=== PATIENT | male | born 1935 | race Caucasian/White ===

== ENCOUNTER 2016-03-29 18:55 | Observation (INO) | payer OTHER ==
[~2016-03-29] VITALS: Ht 175.3 cm; Wt 94.7 kg
[2016-03-29 19:40] LABS: HEMATOCRIT 46.8 % (38.0-50.0); MCH 30.3 PG (29.0-34.0); MCHC 33.3 G/DL (30.0-36.0); MCV 90.9 FL (86-99); MEAN PLAT.VOLUME 10.9 uM^3 (9.0-12.4); PLATELET COUNT 190 K/uL (156-360); RBC DIS.WIDTH-SD 45.9 % (39-53); RED BLOOD COUNT 5.15 M/uL (4.00-5.50); WHITE BLOOD COUNT 12.5 K/uL (4.1-10.2)
[2016-03-29 19:48] LABS: CHLORIDE 105 mEq/L (99-109); POTASSIUM 4.3 mEq/L (3.7-5.4); SODIUM 136 mEq/L (136-147)
[2016-03-29 19:50] LABS: GLUCOSE 198 mg/dL (70-99)
[2016-03-29 19:51] LABS: ANION GAP 8 MEQ/L (2-14)
[2016-03-29 19:54] LABS: GFR ESTIMATE (CALCULATED) 39 mL/min/; UREA NITROGEN (BUN) 27 mg/dL (9-23)
[2016-03-29 20:34] LABS: TROP-I INTERPRETATION NEGATIVE; TROPONIN-I 0.04 ng/mL (0.0-0.30)
[2016-03-29] MEDS ORDERED: ZOCOR40 MG PO (20:45)
[2016-03-29] MEDS ORDERED: CILOSTAZOL50 MG PO (20:46)
[2016-03-29] MEDS ORDERED: JANUVIA25 M1 PO (20:46)
[2016-03-29] MEDS ORDERED: TOUJEO SOL300 UNIT/1 SC (20:46)
[2016-03-29] MEDS ORDERED: ZESTORETIC 20-1 EAC1 PO (20:46)
[2016-03-29] MEDS ORDERED: GLUCOTROL XL5 MG PO (20:46)
[2016-03-29] MEDS ORDERED: ASPIR 8181 M1 PO (20:46)
[2016-03-29] MEDS ORDERED: TIMOPTIC-0100 DROP/1 BOTH EYES (20:47)
[2016-03-29] MEDS ORDERED: CINNAMON500 MG PO (20:47)
[2016-03-29 23:52] LABS: HDL CHOLESTEROL 37 MG/DL (Desirable>=40); LDL CHOLESTEROL 70 mg/dL (Desirable<100); NON-HDL CHOLESTEROL 92 mg/dL (Desirable<160); TOTAL CHOLESTEROL 129 mg/dL (Desirable<200); TRIGLYCERIDES 110 MG/DL (Normal: <150)
[2016-03-30 03:02] LABS: TROP-I INTERPRETATION NEGATIVE; TROPONIN-I 0.04 ng/mL (0.0-0.30)
[2016-03-30 03:55] LABS: HDL CHOLESTEROL 35 MG/DL (Desirable>=40); LDL CHOLESTEROL 66 mg/dL (Desirable<100); NON-HDL CHOLESTEROL 75 mg/dL (Desirable<160); TOTAL CHOLESTEROL 110 mg/dL (Desirable<200); TRIGLYCERIDES 45 MG/DL (Normal: <150)
[2016-03-30 06:59] LABS: POINT-OF-CARE METER ID UU13113831
[2016-03-30 07:26] VITALS: BP 122/82
[2016-03-30 07:29] LABS: POINT-OF-CARE METER ID UU13113831
[2016-03-30 07:41] LABS: Estimated Average Glucose 137 mg/dL (70-123); HEMOGLOBIN A1c (GLYCOHEMOGLOB) 6.4 % HGB (Below 5.7)
[2016-03-30 07:46] LABS: Estimated Average Glucose 140 mg/dL (70-123); HEMOGLOBIN A1c (GLYCOHEMOGLOB) 6.5 % HGB (Below 5.7)
[2016-03-30 09:59] LABS: TROP-I INTERPRETATION NEGATIVE; TROPONIN-I 0.03 ng/mL (0.0-0.30)
[2016-03-30 12:41] VITALS: BP 139/98
[2016-03-30 12:46] LABS: ADD MIUA? NO; BILIRUBIN NEGATIVE; BLOOD NEGATIVE; COLOR YELLOW ((YELLOW)); GLUCOSE (STRIP) 150; KETONES NEGATIVE; LEUKOCYTES NEGATIVE; NITRITE NEGATIVE; PROTEIN (STRIP) NEGATIVE; SPECIFIC GRAVITY 1.013 (1.000-1.030); UCUL ADDED? NO; UROBILINOGEN 0.2 MG/DL (0.2-1.0)
== END 2016-03-30 12:50 | disposition home or self-care (01) ==
LOC: EME 18:55 → EDOF 22:15 → 5WEST 22:15 → EDOF 22:15 → 5WEST 03-30 00:20
PROVIDERS: Emergency Medicine; Hospitalist; Physician Assistant
DX: R47.81 Slurred speech (principal); R42 Dizziness and giddiness; R26.89 Other abnormalities of gait and mobility; R94.31 Abnormal electrocardiogram [ECG] [EKG]; E11.22 Type 2 diabetes mellitus with diabetic chronic kidney disease; I12.9 Hypertensive chronic kidney disease with stage 1 through stage 4 chronic kidney disease, or unspecified chronic kidney disease; N17.9 Acute kidney failure, unspecified; N18.3 Chronic kidney disease, stage 3 (moderate); E78.5 Hyperlipidemia, unspecified; Z82.3 Family history of stroke; Z82.49 Family history of ischemic heart disease and other diseases of the circulatory system; Z88.5 Allergy status to narcotic agent
CPT/HCPCS: 70450; 70551; 71010; 80048; 80061; 81003; 82948; 83036; 84484; 85027; 93005; 93306; 93880; G0378; J1644; J1815

== ENCOUNTER 2016-04-16 08:02 | Day surgery (SDC) | payer OTHER ==
[~2016-04-16] VITALS: Ht 175.3 cm; Wt 90.7 kg
[~2016-04-16 08:02] MED LIST: ASPIR 8181 M1 PO; CILOSTAZOL50 MG PO; CINNAMON500 MG PO; GLUCOTROL XL5 MG PO; JANUVIA25 M1 PO; TIMOPTIC-0100 DROP/1 BOTH EYES; TOUJEO SOL300 UNIT/1 SC; ZESTORETIC 20-1 EAC1 PO; ZOCOR40 MG PO
[2016-04-16] MEDS ORDERED: GLIPIZIDE XL10 MG PO (09:26)
[2016-04-16 12:01] LABS: POINT-OF-CARE METER ID UU13113696
[2016-04-16 12:41] LABS: POINT-OF-CARE METER ID UU13113696
== END 2016-04-16 17:20 | disposition home or self-care (01) ==
LOC: CATH 08:02
PROVIDERS: Internal Medicine Cardiovascular Disease
DX: I25.10 Atherosclerotic heart disease of native coronary artery without angina pectoris (principal); I25.84 Coronary atherosclerosis due to calcified coronary lesion; I49.3 Ventricular premature depolarization; I34.0 Nonrheumatic mitral (valve) insufficiency; I35.1 Nonrheumatic aortic (valve) insufficiency; I12.9 Hypertensive chronic kidney disease with stage 1 through stage 4 chronic kidney disease, or unspecified chronic kidney disease; E11.22 Type 2 diabetes mellitus with diabetic chronic kidney disease; N18.3 Chronic kidney disease, stage 3 (moderate); E78.2 Mixed hyperlipidemia; E66.9 Obesity, unspecified; Z86.73 Personal history of transient ischemic attack (TIA), and cerebral infarction without residual deficits; Z68.30 Body mass index [BMI] 30.0-30.9, adult; Z79.82 Long term (current) use of aspirin; Z79.84 Long term (current) use of oral hypoglycemic drugs
CPT/HCPCS: 82948; C1769; J1644; J2250; J2405; J3010

== ENCOUNTER → 2017-05-10 | Outpatient (CLI) | payer OTHER ==
[~2017-05-10] MED LIST changes: +BASAGLAR K100 UNIT/1 SC; +GLIPIZIDE XL10 MG PO; +GLIPIZIDE XL5 MG PO
[2017-05-10 11:15] LABS: TYPE OF FLUID THORACENTESIS
[2017-05-10 11:53] LABS: APPEARANCE CLOUDY-YELLOW; BODY FLUID EOSINOPHILS 0 % (0-25); BODY FLUID RBC'S 11000 /MM^3 (0-100); BODY FLUID WBC'S 1063 /MM^3 (0-500); COMMENT RARE MACROPHAGES SEEN; MONONUCLEAR WBC'S 98 %; POLYNUCLEAR WBC'S 2 % (0-25)
[2017-05-10 12:06] LABS: BODY FLUID GLUCOSE 145 MG/DL; BODY FLUID LDH 163 IU/L; BODY FLUID PROTEIN < 3.0 G/DL
== END | disposition home or self-care (01) ==
LOC: RAD 10:19 → EDSTATUS 11:00
PROVIDERS: Internal Medicine Pulmonary Disease
PROC: 0W993ZZ Drainage of Right Pleural Cavity, Percutaneous Approach (ICD-10-PCS; principal; 2017-05-10)
DX: J90 Pleural effusion, not elsewhere classified (principal)
CPT/HCPCS: 71046; 76942; 82945; 83615 91; 84157; 87205; 88108; 88305; 89051